=== PATIENT | female | born 1995 | race Two or more races ===

== ENCOUNTER 2018-08-25 15:15 | Inpatient (IN) | payer OTHER ==
[~2018-08-25] VITALS: Ht 154.9 cm; Wt 59.0 kg
[2018-08-28] MEDS ORDERED: PRENATAL TABLE1 EAC3 PO (11:06)
== END 2018-08-30 14:19 | DRG 767 ==
LOC: OB/GYN 08-28 05:35 → LDR 08-28 05:35 → OB/GYN 08-28 20:48 → LDR 09-05 15:15
PROC: 0KQM0ZZ Repair Perineum Muscle, Open Approach (ICD-10-PCS; principal; 2018-08-28)
PROC: 10E0XZZ Delivery of Products of Conception, External Approach (ICD-10-PCS; 2018-08-28)
PROC: 3E033VJ Introduction of Other Hormone into Peripheral Vein, Percutaneous Approach (ICD-10-PCS; 2018-08-28)
PROC: 4A1HXCZ Monitoring of Products of Conception, Cardiac Rate, External Approach (ICD-10-PCS; 2018-08-28)
PROC: 4A033R1 Measurement of Arterial Saturation, Peripheral, Percutaneous Approach (ICD-10-PCS; 2018-08-28)
PROC: 0UB70ZZ Excision of Bilateral Fallopian Tubes, Open Approach (ICD-10-PCS; 2018-08-29)
DX: O70.1 Second degree perineal laceration during delivery (principal); Z37.0 Single live birth; Z3A.39 39 weeks gestation of pregnancy; Z22.330 Carrier of Group B streptococcus; Z30.2 Encounter for sterilization